=== PATIENT | female | born 1960 | race Caucasian/White ===

== ENCOUNTER → 2018-05-18 | Outpatient (CLI) | payer OTHER, SELFPAY ==
[~2018-05-18] MED LIST: ADULT LOW DOSE81 MG PO; ADVIL200 M1 PO; ALDACTONE50 MG PO; ALLOPURINOL 30300 M2 PO; APAP500 PO; ARTIFICIAL TEA1 EACH OPHTHALMIC; ARTIFICIAL TEAR15 M3 OPHTHALMIC; ASPIRIN325 PO; ATENOLOL 25 MG25 M1 PO; ATENOLOL 25MG T25 M1 PO; ATIVAN1 MG PO; BACTRIM DS TAB1 EACH PO; BACTRIM PO; BENADRYL25 MG PO; BYSTOLIC 5 MG5 M1 PO; BYSTOLIC2.5 MG PO; CEFDINIR300 MG PO; CITRATE OF MAG296 ML; CITRATE OF MAG296 ML PO; CLEOCIN HCL300 MG PO; COLACE 100 MG100 MG PO; COLACE100 MG PO; COMPAZINE10 MG PO; DIAZEPAM 2MG TAB2 MG OR; DIAZEPAM 5 MG5 M1 PO; DILTIAZEM ER120 M1 PO; DIOVAN PO; FLAGYL500 MG PO; FLECAINIDE ACET50 M1; FLECAINIDE ACET50 M1 PO; FLECAINIDE ACET50 M2 PO; FLEXERIL PO; GERI-LANTA LIQ355 ML PO; HEMORRHOIDAL HC25 MG RECTAL; HYDROCODON-ACE1 EAC7 PO; HYDROCODONE-AP1 EAC6 PO; IBUPROFEN 600600 M1 PO; K-DUR 20 MEQ T20 MEQ PO; KEFLEX500 M1 PO; KLOR-CON25 ME1 PO; KLOR-CON25 MEQ PO; MEDROL DOSPAK21 TAB PO; MIRALAX17 GM PO; MIRALAX255 GM PO; NORCO 5-325 TA1 EACH PO; ONDANSETRON HCL4 M2 PO; ONDANSETRON ODT4 MG PO; OSCIMIN SL0.125 MG SL; PEPCID20 MG PO; PEPCID40 MG PO; POTASSIUM CHLORIDE PO; POTASSIUM CL 225 MEQ PO; POTASSIUM20 PO; PREDNISONE 20 M20 MG PO; PREDNISONE50 MG; PREPARATION H26 GM; PROPAFENONE 22225 M1 PO; PROPAFENONE 22225 MG PO; PROPAFENONE HC325 M1 PO; PYRIDIUM200 MG PO; SOTALOL 120 MG120 M1 PO; SPIRONOLACTONE25 M1 PO; SULFAMETHOXAZOL20 ML PO; SULFAMETHOXAZOLE5 ML PO; TUMS PO; ULTRAM 50MG TAB50 MG PO; VALIUM2 MG PO; VALIUM5 MG PO; XANAX 1 MG TABLE1 MG PO; ZOFRAN 4 MG ORAL4 M1 DIS; ZPAK PO
== END ==
LOC: CAT 16:07
DX: J90 Pleural effusion, not elsewhere classified (principal); J98.4 Other disorders of lung; I51.7 Cardiomegaly; J98.11 Atelectasis; E04.1 Nontoxic single thyroid nodule; I25.10 Atherosclerotic heart disease of native coronary artery without angina pectoris

== ENCOUNTER 2020-01-15 18:37 | Inpatient (IN) | payer OTHER ==
[~2020-01-15] VITALS: Ht 167.6 cm; Wt 108.0 kg
[2020-01-15 18:41] VITALS: BP 176/92
[2020-01-15] MEDS ORDERED: TOPROL XL25 MG PO (19:35)
[2020-01-15] MEDS ORDERED: CHILDREN'S ASPI81 M1 PO (19:36)
[2020-01-15] MEDS ORDERED: KLOR-CON 10 ER10 MEQ PO (19:36)
[2020-01-15] MEDS ORDERED: JANTOVEN1 MG PO (19:36)
[2020-01-15 19:38] LABS: ABSOLUTE NEUTROPHILS 11.1 thou/uL (1.4-8.2); BASOPHILS 0.3 % (0.0-2.0); EOSINOPHILS 0.3 % (0.0-3.0); HEMOGLOBIN 14.6 gm/dL (12.0-15.0); LYMPHOCYTES 7.4 % (24.0-44.0); MCH 27.9 pg (26.0-34.0); MCHC 33.3 g/dL (28.0-37.0); MONOCYTES 8.1 % (1.0-8.0); PLATELET COUNT 189 thou/uL (150-400); POLYS 83.9 % (36.0-66.0); RBC 5.24 mil/uL (4.20-5.00); RDW 15.4 % (10.5-14.5); WBC 13.2 thou/uL (4.0-11.0)
[2020-01-15 19:42] LABS: CALCIUM 9.2 mg/dL (8.5-10.1); CREATININE 0.9 mg/dL (0.6-1.0); POTASSIUM 3.5 mmol/L (3.5-5.1)
[2020-01-15 19:48] LABS: ALBUMIN 3.8 g/dL (3.4-5.0); TOTAL BILIRUBIN 1.8 mg/dL (0.2-1.0); TOTAL PROTEIN 8.5 g/dL (6.4-8.2)
[2020-01-15 21:09] LABS: URINE BILIRUBIN NEGATIVE (Negative); URINE BLOOD 3+ (Negative); URINE CLARITY CLEAR; URINE COLOR YELLOW; URINE GLUCOSE-RANDOM* NEGATIVE (Negative); URINE KETONES NEGATIVE (Negative); URINE NITRITE-REFLEX NEGATIVE (Negative); URINE PROTEIN (DIPSTICK) 2+ (Negative); URINE UROBILINOGEN 0.2 E.U./dl (0.2-1.0)
[2020-01-15 21:12] LABS: URINE LEUKOCYTES-REFLEX 1+ (Negative)
[2020-01-15 21:17] VITALS: BP 140/77
[2020-01-15 21:25] LABS: BACTERIA-REFLEX 1-9 Few /HPF (None Seen); CASTS None Seen /LPF (None Seen); CRYSTALS None Seen /LPF (None Seen); SQUAMOUS 0-3 Few /LPF (0-3); URINE WBC-REFLEX 6-15 Few /HPF (0-5)
[2020-01-15 21:37] VITALS: BP 158/89
[2020-01-15 22:06] VITALS: BP 169/90
[2020-01-15] MEDS ORDERED: DIAZEPAM2 MG PO (22:12)
[2020-01-15] MEDS ORDERED: LORCET 5-325 M1 EACH PO (22:14)
[2020-01-15] MEDS ORDERED: PEPCID20 MG PO (22:15)
[2020-01-15] MEDS ORDERED: WARFARIN SODIU2.5 MG PO (22:23)
[2020-01-15 22:48] VITALS: BP 158/75
[2020-01-15 23:40] LABS: INR 2.7; PROTIME 27.4 Seconds (9.3-11.4)
[2020-01-16 04:33] VITALS: BP 126/65
--- NOTE | 2020-01-16 05:08 | NUR ---
Arrived from ER around 2200. Adm hx and assessment completed. Med rec reviewed and verified with pt. Requested pain med and her HS meds. DIKE SUPERVISOR notified and order received. Medicated for right shoulder pain with some relief. Afebrile. Cont. on enhanced precaution pending COVID results. Tolerating room air well with no respiratory distress. MRI questionaires reviewed with pt and verbal consent given.
[2020-01-16 05:53] LABS: HEMATOCRIT 40.2 % (37.0-47.0); HEMOGLOBIN 13.4 gm/dL (12.0-15.0); MCH 28.3 pg (26.0-34.0); MCHC 33.3 g/dL (28.0-37.0); RBC 4.73 mil/uL (4.20-5.00); RDW 15.7 % (10.5-14.5); WBC 9.8 thou/uL (4.0-11.0)
[2020-01-16 05:55] LABS: INR 2.6; PROTIME 26.5 Seconds (9.3-11.4)
[2020-01-16 06:17] LABS: CALCIUM 8.3 mg/dL (8.5-10.1); CREATININE 0.9 mg/dL (0.6-1.0); POTASSIUM 3.3 mmol/L (3.5-5.1)
[2020-01-16 07:50] VITALS: BP 140/74
--- NOTE | 2020-01-16 12:55 | NUR ---
INITIAL ASSESSMENT: SW reviewed chart and spoke with nursing and attending physician. Pt was admitted from home due to fever/shoulder pain. Pt placed in Enhanced Isolation to r/o COVID-19. Test is pending. Pt had fever and on IV abx. Pt not requiring O2. SW spoke with pt via phone. Introduced role of SW. Pt is alert/orientated x 4 and reports she lives at home with her . Prior to admission, pt was independent with ADLs. No use of DME. Pt has used [facility] in the past following open heart surgery. No hx of post-acute placement. Pt's PCP is Dr. Maribeth Jurado. Therapy orders requested to evaluate pt for discharge needs. SW is following to assist as needed with discharge planning.
[2020-01-16 16:34] VITALS: BP 159/89
--- NOTE | 2020-01-16 18:36 | NUR ---
ASSUMED CARE OF PT AT 0700. PT ALERT AND ORIENTED X4 IN NO ACUTE DISTRESS. PAIN WELL CONTROLLED WITH CURRENT MED REGIMEN. MRI ON HOLD PER HOSPITALIST - ORTHO CONSULTED. CALLS OUT APPROPRIATELY. OFF ISO PER ID REC.
[2020-01-16 20:52] VITALS: BP 189/89
[2020-01-17 00:41] VITALS: BP 142/72
--- NOTE | 2020-01-17 05:31 | NUR ---
Pt. requested for pain med at HS. Hydrocodone x2 given for right shouder pain with good relief. Denies need for pain med this am. She said she has not slept well for a couple of days and requested for her sleep med. Diazepam given with help. Pt. stated she slept for few hours and she felt good this am. Afebrile. Making soem progress towards care plan goals.
[2020-01-17 05:58] LABS: HEMATOCRIT 41.4 % (37.0-47.0); HEMOGLOBIN 13.7 gm/dL (12.0-15.0); MCH 28.1 pg (26.0-34.0); MCHC 33.1 g/dL (28.0-37.0); RBC 4.87 mil/uL (4.20-5.00); RDW 15.8 % (10.5-14.5); WBC 7.8 thou/uL (4.0-11.0)
[2020-01-17 05:59] LABS: INR 2.6; PROTIME 26.8 Seconds (9.3-11.4)
[2020-01-17 06:10] VITALS: BP 154/83
[2020-01-17 06:12] LABS: CALCIUM 9.2 mg/dL (8.5-10.1); CREATININE 0.9 mg/dL (0.6-1.0); POTASSIUM 3.9 mmol/L (3.5-5.1)
[2020-01-17 07:50] VITALS: BP 150/89
--- NOTE | 2020-01-17 12:23 | HC ---
[facility] [place] [address] CONSULTATION Name: NICOLASA LIN Room #: 354-P ADM IN M.R.#: [id number] Admission: 01/15/20 Attend Phys: Ced Yan MD Discharge: Date of : 56 Report #: [id number] THIS REPORT FOR: cc: Maribeth Jurado MD,Heather Daigle MD, MD ~ CC: Ced Jurado DATE OF SERVICE: 01/16/2020 REASON FOR CONSULTATION: Right shoulder pain. HISTORY OF PRESENT ILLNESS: The patient is a 59-year-old female with approximately 3-4 day history of right shoulder pain. She reports lifting something and feeling a pulling sensation and then later noticed increasing pain in her shoulder. She said the pain has worsened with movement and it feels better if she does not move it. She has had a prior similar event happened with her shoulder or elbow. She is unsure if she was seen by Dr. Nathan at [place] and this resolved spontaneously without requiring any specific treatment. She reports generalized body aches. She reports that her fever broke last night and she reports being admitted for a UTI. She reports a lidocaine patch may have helped somewhat. PAST MEDICAL HISTORY: Significant for hypertension, atrial fibrillation, non-Hodgkin's lymphoma. PAST SURGICAL HISTORY: Ovarian cyst excision, rectal fissure repair, D and C x 2, heart surgery. HOME MEDICATIONS: Include warfarin, polyethylene glycol, diazepam, hydrocodone, famotidine, metoprolol, potassium, aspirin. ALLERGIES: LEVOFLOXACIN, DILTIAZEM, NEBIVOLOL, CIPROFLOXACIN, NITROFURANTOIN, PENICILLIN AND SULFA. SOCIAL HISTORY: She is right hand dominant. Takes care of her 4-year-old grandson. Denies smoking or drinking alcohol. REVIEW OF SYSTEMS: NEUROLOGIC: Reports history of carpal tunnel syndrome on the right upper extremity. MUSCULOSKELETAL: Denies any other complaints. LABORATORY STUDIES: Done on 01/16/2020 show white blood cell count 9.8, improved from 13.2, hemoglobin 13.4, hematocrit 40.2, platelet count 168. INR [facility] [address] [place] [address] CONSULTATION Name: NICOLASA LINN Room #: 354-P [facility] IN [facility]#: [id number] Admission: 01/15/20 Attend Phys: Ced Yan MD Discharge: Date of : 56 Report #: [id number] is 2.6. Chemistry shows a low potassium at 3.3. Serology is COVID negative. PHYSICAL EXAMINATION: GENERAL: The patient is alert and oriented. She interacts appropriately. She is well-developed, well-nourished female in no acute distress. She is very pleasant and has appropriate affect. VITAL SIGNS: Most recent vital signs show heart rate 88, respiratory rate 18, blood pressure 159/89, pulse oximetry 99% on room air. EXTREMITIES: Examination of her bilateral upper extremities grossly neurovascularly intact. Brisk capillary refill. She wiggles her fingers half flexed. Grossly motor normal strength and stability. She moves her bilateral elbows, wrists, forearms and hands without pain. Right shoulder exam shows some diffuse mild edema in the upper arm and shoulder area. There is no erythema. There is some mild pain with passive joint range of motion. Her active range of motion is limited secondary to pain and there is diffuse tenderness in her shoulder and proximal arm. RADIOGRAPHS: AP and scapular Y view are suboptimal and shows some calcification in the greater tuberosity. IMPRESSION AND PLAN: Right shoulder pain may be related to her history of a pulling type injury, may be related to a calcific tendinitis or a less likely septic arthritis. I agree with obtaining an MRI tomorrow morning. We will follow the patient closely. Thank you very much for allowing me to participate in care of this patient. <ELECTRONICALLY SIGNED> By: Heather Vee MD 01/17/20 1223 [id number] Heather Vee MD /nt
--- NOTE | 2020-01-17 13:59 | NUR ---
JORGE reviewed chart and spoke with nursing and attending physician. Pt's Enhanced Isolation precautions have been discontinued. Pt is on IV abx. Pt to have MRI of her right shoulder today. Ortho consulted. Therapy evals ordered but are on hold at this time. Pt lives at home with her spouse. No weekend discharge planned. JORGE is following to assist as needed with discharge planning.
[2020-01-17 16:16] VITALS: BP 147/87
--- NOTE | 2020-01-17 17:50 | NUR ---
ASSUMED PATIENT CARE AT 0700. A/O X4. RIGHT UP ARM RED PIAN. UP AD ONOFRE. PROGRESSING TOWARDS POC GOALS.
[2020-01-17 19:23] VITALS: BP 117/96
[2020-01-18 05:38] LABS: INR 2.5; PROTIME 25.9 Seconds (9.3-11.4)
--- NOTE | 2020-01-18 05:54 | NUR ---
PT MAKING PROGRESS TOWARDS GOALS. NOTED MRI RESULTS OF RIGHT SHOULDER TO BE DISCUSSED WITH PT LATER TODAY BY PHYSICIAN. RIGHT ARM, SHOULDER TO ELBOW 1+ EDEMA, SLIGHTLY REDDENED AND WARM ( COMPARED TO LEFT ARM). PT REPORTING PAIN 5/10, GIVEN ONE PAIN PILL LAST NIGHT AND REPORTS PAIN 4/10 THIS AM. CONTINUE TO MONITOR.
[2020-01-18 08:11] VITALS: BP 143/88
--- NOTE | 2020-01-18 10:22 | NUR ---
ORDERS FOR EVAL AND TREAT. OBSERVED Pt STAND AND AMBULATE IN ROOM. NO DIFFICULTY WITH MOBILITY. Pt DECLINING FORMAL P.T. EVAL. Pt APPEARS SAFE FOR HOME. WOULD RECOMMEND OUTPATIENT P.T. TO ADDRESS RT SHOULDER
[2020-01-18] MEDS ORDERED: KEFLEX500 M1 PO (11:07)
[2020-01-18 11:16] VITALS: BP 143/88
--- NOTE | 2020-01-18 12:17 | NUR ---
DC UTILITIES MANAGER NOTIFIED BY NURSE THAT PT IS BEING DISCHARGED TODAY TO HOME WITH OUTPT THERAPY AND PT IS WANTING TO USE [facility] IN [place] FAXED ORDER AND H/P AND FACE SHEET TO [facility] RECEIVED CONFIRMATION AND THEY WILL NOTIFY PT TO SET UP APPT'S.
--- NOTE | 2020-01-18 13:45 | NUR ---
PT DISCHARGED TO HOME WITH OUTPT PTX...
== END 2020-01-18 13:00 | disposition home or self-care (01) | DRG 872 ==
LOC: ER 18:37 → EROBS 20:57 → 3W 20:57
PROVIDERS: Emergency Medicine; Nurse Practitioner Family; ADMIT Hospitalist; ATTEND Hospitalist
DX: A41.9 Sepsis, unspecified organism (principal); N39.0 Urinary tract infection, site not specified; I48.20 Chronic atrial fibrillation, unspecified; C85.90 Non-Hodgkin lymphoma, unspecified, unspecified site; I25.10 Atherosclerotic heart disease of native coronary artery without angina pectoris; G89.4 Chronic pain syndrome; M47.9 Spondylosis, unspecified; M25.511 Pain in right shoulder; I10 Essential (primary) hypertension; M75.31 Calcific tendinitis of right shoulder; M71.9 Bursopathy, unspecified; Z20.828 Contact with and (suspected) exposure to other viral communicable diseases; Z79.01 Long term (current) use of anticoagulants; Z79.82 Long term (current) use of aspirin; Z79.899 Other long term (current) drug therapy; Z88.1 Allergy status to other antibiotic agents; Z88.0 Allergy status to penicillin; Z88.2 Allergy status to sulfonamides; Z88.8 Allergy status to other drugs, medicaments and biological substances; Z95.4 Presence of other heart-valve replacement; Z95.1 Presence of aortocoronary bypass graft
CPT/HCPCS: 10080; 10879

== ENCOUNTER → 2020-02-11 | Outpatient (CLI) | payer OTHER ==
[~2020-02-11] MED LIST changes: +CHILDREN'S ASPI81 M1 PO; +DIAZEPAM2 MG PO; +JANTOVEN1 MG PO; +KLOR-CON 10 ER10 MEQ PO; +LORCET 5-325 M1 EACH PO; +TOPROL XL25 MG PO; +WARFARIN SODIU2.5 MG PO
== END ==
LOC: RAD 14:43
PROVIDERS: ATTEND Family Medicine
DX: N28.1 Cyst of kidney, acquired (principal); I51.7 Cardiomegaly; I25.10 Atherosclerotic heart disease of native coronary artery without angina pectoris; N20.0 Calculus of kidney; I70.0 Atherosclerosis of aorta; R19.5 Other fecal abnormalities; J98.4 Other disorders of lung